=== PATIENT | male | born 1955 | race Caucasian/White ===

== ENCOUNTER 2021-03-13 11:52 | Outpatient (CLI) | payer MEDICARE, BC | END 2021-03-13 11:53 | disposition home or self-care (01) | LOC: CSHRAD 11:52 | PROVIDERS: ATTEND Orthopaedic Surgery | DX: M54.6 Pain in thoracic spine (principal); M47.814 Spondylosis without myelopathy or radiculopathy, thoracic region; M41.9 Scoliosis, unspecified; M81.0 Age-related osteoporosis without current pathological fracture | CPT/HCPCS: 72070 ==